=== PATIENT | male | born 1970 | race African-American/Black ===

== ENCOUNTER 2016-08-11 06:42 | Emergency (ER) | payer MEDICAID, OTHER ==
[~2016-08-11] VITALS: Ht 175.3 cm; Wt 86.2 kg
--- OUTSIDE RECORDS SUMMARY | 2016-08-11 06:48 | XMS REPORT | Continuity of Care Document ---
Author Author [facility] Organization [facility] Address Unknown Phone Unavailable Care Team Providers Care Game Attendant Name Role Phone Unverified, Unverified PCP Unavailable Source Comments Some departments are not documenting in the electronic medical record. If you do not see the information that you expected, contact Release of Information in the Health Information Management department at [phone] for further assistance in locating additional records.[facility] Active Allergies and Adverse Reactions No Known Allergies Current Medications Prescription Sig. Disp. Refills Start End Date Status Date enoxaparin (LOVENOX) 40 Inject 0.4 mL under the 14 Syringe 1 07/27/20 08/29/19 Active mg injection syringe skin daily for 33 days. 16 17 senna/docusate (SENNA Take 1 Tab by mouth twice 120 Tab 1 07/27/20 Active WITH DOCUSATE SODIUM) daily. Hold for loose 16 8.6/50 mg tablet stools. oxyCODONE (ROXICODONE, Take 1-2 Tabs by mouth 75 Tab 0 07/27/20 Active OXY-IR) 5 mg tablet every 4 hours as needed 16 for Pain Earliest Fill Date: 07/27/16 polyethylene glycol 3350 Take 1 Packet by mouth 12 Each 2 07/27/20 Active (MIRALAX) 17 g packet twice daily. 16 senna/docusate Take 2 Tabs by mouth 120 Tab 0 07/27/20 Active (SENOKOT-S) 8.6/50 mg twice daily. 16 tablet docusate (COLACE) 100 mg Take 1 Cap by mouth twice 60 Cap 0 08/07/20 Active capsule daily as needed for 16 Constipation. aspirin EC 325 mg tablet Take 1 Tab by mouth daily 42 Tab 0 08/07/20 09/18/19 Active for 42 days. Take 1 tab 16 17 daily for 6 weeks after surgery. HYDROcodone/acetaminophen Take 1-2 Tabs by mouth 60 Tab 0 08/07/20 Active (NORCO) 5/325 mg tablet every 4-6 hours as needed 16 for Pain Indications: PAIN Do not take prior to surgery. ondansetron hcl (ZOFRAN) Take 1 Tab by mouth every 10 Tab 0 08/07/20 Active 8 mg tablet 8 hours as needed for 16 Nausea or Vomiting. Active Problems Problem Noted Date Dislocation of left knee 07/30/2016 Knee dislocation 07/22/2016 Most Recent Encounters Date Type Specialty Providers Description 08/12/2016 [facility] Wu Mayfield MD Knee dislocation Encounter 08/07/2016 Office Visit Sports Medicine Wu Mayfield MD Dislocation of knee, left, subsequent encounter (Primary Dx); Dislocation of knee, right, subsequent encounter 08/07/2016 Prep for Case Sports Medicine Wu Mayfield MD Knee dislocation, left, subsequent encounter (Primary Dx); Knee dislocation, right, subsequent encounter 07/30/2016 Office Visit Orthopedic Surgery Ivan Ayoub MD Knee dislocation, right, subsequent encounter (Primary Dx); Dislocation of left knee, subsequent encounter 07/28/2016 Ancillary Radiology Outpatient, Radiologist Unknown cause of injury, Orders initial encounter (Primary Dx) 07/28/2016 Documentation Live Cohen 07/22/2016 [facility] Family Medicine Ivan Ayoub MD Knee dislocation - Encounter 07/27/2016 07/22/2016 [facility] Radiology Ivan Ayoub MD Encounter 07/22/2016 Hospital Radiology Encounter 07/22/2016 Anesthesia Shereen Roca, FAMILY MANAGER Event 07/22/2016 Surgery Ivan Ayoub MD EXTERNAL FIXATION APPLICATION LOWER EXTREMITY Social History Tobacco Use Types Packs/Day Years Used Date Never Smoker Smokeless Tobacco: Never Used Tobacco Cessation: Counseling Given: No Comments: Alcohol Use Drinks/Week oz/Week Comments No 0 Standard 0.0 drinks or equivalent Last Filed Vital Signs Vital Sign Reading Time Taken Blood Pressure 123/63 08/07/2016 10:35 AM [facility] Pulse 80 08/07/2016 10:35 AM [facility] Temperature 36.7 C (98 F) 07/27/2016 6:05 AM [facility]ER Respiratory Rate 16 08/07/2016 10:35 AM [facility] Height 1.753 m (5' 9") 08/07/2016 10:35 AM [facility] Weight 89.359 kg (197 lb) 08/07/2016 10:35 AM [facility] Body Mass Index 29.08 08/07/2016 10:35 AM [facility]ER Oxygen Saturation 100% 08/07/2016 10:35 AM [facility] Plan of Care Date Type Specialty Providers Description 08/12/2016 Surgery Wu Mayfield MD EXTERNAL FIXATION REMOVAL [address] BILATERAL LOWER EXTREM[address] [place] [address] [phone] (Fax) 08/19/2016 Appointment Radiology Wu Mayfield MD [address] [place] [address] [phone] (Fax) 08/25/2016 Appointment Sports Medicine Wu Mayfield MD [address] [place] [address] [phone] (Fax) Health Maintenance Due Date Last Done Comments Physical (Comprehensive) 1979 Exam Pertussis Vaccine 1983 Tetanus Vaccine 1989 Influenza Vaccine 04/09/2016 Procedures from Last 3 Months Procedure Name Priority Date/Time Associated Diagnosis Comments TELEMETRY STRIPS-SCAN 07/28/2016 Results for this 12:47 PM [facility] procedure are in the results section. EXTERNAL FIXATION 07/22/2016 Trauma APPLICATION LOWER 12:25 PM [facility] EXTREMITY Results from Last 3 Months TELEMETRY STRIPS-SCAN (07/28/2016 12:47 PM) Narrative Ordered by an unspecified provider. CBC (07/27/2016 4:26 AM)Only the most recent of 4 results within the time period is included. Component Value Range White Blood Cells 7.3 4.5-11.0 K/UL RBC 4.60 4.4-5.5 M/UL Hemoglobin 14.0 13.5-16.5 GM/DL Hematocrit 41.8 40-50 % MCV 90.9 80-100 FL MCH 30.5 26-34 PG MCHC 33.5 32.0-36.0 G/DL RDW 13.2 11-15 % Platelet Count 256 150-400 K/UL MPV 8.0 7-11 FL Specimen Blood BASIC METABOLIC PANEL (07/27/2016 4:26 AM)Only the most recent of 4 results within the time period is included. Component Value Range Sodium 133 (L) 137-147 MMOL/L Potassium 4.5 3.5-5.1 MMOL/L Chloride 97 (L) 98-110 MMOL/L CO2 30 21-30 MMOL/L Anion Gap 6 3-12 Glucose 102 (H) 70-100 MG/DL Blood Urea Nitrogen 22 7-25 MG/DL Creatinine 1.04 0.4-1.24 MG/DL Calcium 9.4 8.5-10.6 MG/DL eGFR Non >60Comment: >60 mL/min The eGFR is not validated for use in drug dosing adjustments. Continue to use estimated creatinine clearance per dosing reference text. Please contact the Clinical Pharmacist for questions. eGFR >60Comment: >60 mL/min The eGFR is not validated for use in drug dosing adjustments. Continue to use estimated creatinine clearance per dosing reference text. Please contact the Clinical Pharmacist for questions. Specimen Blood POC GLUCOSE (07/24/2016 3:56 AM) Component Value Range Glucose, POC 103 (H) 70-100 MG/DL PHENCYCLIDINES-URINE RANDOM (07/22/2016 7:50 PM) Component Value Range Phencyclidine (PCP) NEGComment: NEG-NEG RESULTS WERE OBTAINED BY IMMUNOASSAY AND ARE PRESUMPTIVE ONLY. POSITIVE INDICATES THE PRESENCE OF SUBSTANCE WITH CHARACTERISTICS SIMILAR TO DRUG-DRUG CLASS OR METABOLITE IN CONC. EQUAL TO OR EXCEEDING VALUES LISTED. PHENCYCLIDINE (PCP) 25 NG/ML Specimen Urine OPIATES-URINE RANDOM (07/22/2016 7:50 PM) Component Value Range Opiates-Urine POS (A)Comment: NEG-NEG RESULTS WERE OBTAINED BY IMMUNOASSAY AND ARE PRESUMPTIVE ONLY. POSITIVE INDICATES THE PRESENCE OF SUBSTANCE WITH CHARACTERISTICS SIMILAR TO DRUG-DRUG CLASS OR METABOLITE IN CONC. EQUAL TO OR EXCEEDING VALUES LISTED. OPIATES 200 0 NG/ML Specimen Urine COCAINE-URINE RANDOM (07/22/2016 7:50 PM) Component Value Range Cocaine-Urine NEGComment: NEG-NEG RESULTS WERE OBTAINED BY IMMUNOASSAY AND ARE PRESUMPTIVE ONLY. POSITIVE INDICATES THE PRESENCE OF SUBSTANCE WITH CHARACTERISTICS SIMILAR TO DRUG-DRUG CLASS OR METABOLITE IN CONC. EQUAL TO OR EXCEEDING VALUES LISTED. COCAINE 300 NG/ML Specimen Urine CANNABINOIDS-URINE RANDOM (07/22/2016 7:50 PM) Component Value Range THC POS (A)Comment: NEG-NEG RESULTS WERE OBTAINED BY IMMUNOASSAY AND ARE PRESUMPTIVE ONLY. POSITIVE INDICATES THE PRESENCE OF SUBSTANCE WITH CHARACTERISTICS SIMILAR TO DRUG-DRUG CLASS OR METABOLITE IN CONC. EQUAL TO OR EXCEEDING VALUES LISTED. CANNABINOIDS 50 NG/ML Specimen Urine BENZODIAZEPINES-URINE RANDOM (07/22/2016 7:50 PM) Component Value Range Benzodiazepines POS (A)Comment: NEG-NEG RESULTS WERE OBTAINED BY IMMUNOASSAY AND ARE PRESUMPTIVE ONLY. POSITIVE INDICATES THE PRESENCE OF SUBSTANCE WITH CHARACTERISTICS SIMILAR TO DRUG-DRUG CLASS OR METABOLITE IN CONC. EQUAL TO OR EXCEEDING VALUES LISTED. BENZODIAZEPINES 200 NG/ML Specimen Urine BARBITURATES-URINE RANDOM (07/22/2016 7:50 PM) Component Value Range Barbiturates,Urine NEGComment: NEG-NEG RESULTS WERE OBTAINED BY IMMUNOASSAY AND ARE PRESUMPTIVE ONLY. POSITIVE INDICATES THE PRESENCE OF SUBSTANCE WITH CHARACTERISTICS SIMILAR TO DRUG-DRUG CLASS OR METABOLITE IN CONC. EQUAL TO OR EXCEEDING VALUES LISTED. BARBITURATES 200 NG/ML Specimen Urine AMPHETAMINES-URINE RANDOM (07/22/2016 7:50 PM) Component Value Range Amphetamines NEGComment: NEG-NEG RESULTS WERE OBTAINED BY IMMUNOASSAY AND ARE PRESUMPTIVE ONLY. POSITIVE INDICATES THE PRESENCE OF SUBSTANCE WITH CHARACTERISTICS SIMILAR TO DRUG-DRUG CLASS OR METABOLITE IN CONC. EQUAL TO OR EXCEEDING VALUES LISTED. AMPHETAMINES 1000 NG/ML Specimen Urine FLUORO MOBILE IN OR (07/22/2016 3:07 PM) Narrative This order has been auto finalized and does not contain a result. GENERAL RAD LOWER EXT EXTERNAL IMAGING (07/22/2016) Narrative This order has been auto finalized and does not contain a result.
[2016-08-11] MEDS ORDERED: NS IV 1000 ML 1,000 ML IV ONE (06:50)
[2016-08-11] MEDS ORDERED: LOVENOX (07:04)
[2016-08-11] MEDS ORDERED: HYDR-3812 (07:04)
[2016-08-11] MEDS ORDERED: ACET-93 PO (07:05)
[2016-08-11 07:10] LABS: BASOPHILS % (AUTO) 0 % (0-10); EOSINOPHILS % (AUTO) 0 % (0-10); LYMPHOCYTES # (AUTO) 1.3 X 10^3 (1.0-4.0); LYMPHOCYTES % (AUTO) 15 % (12-44); MEAN CORPUSCULAR HEMOGLOBIN 31 PG (25-34); MEAN CORPUSCULAR HGB CONC 35 G/DL (32-36); MEAN CORPUSCULAR VOLUME 90 FL (80-99); MEAN PLATELET VOLUME 9.5 FL (7.4-10.4); MONOCYTES # (AUTO) 1.4 X 10^3 (0.0-1.0); MONOCYTES % (AUTO) 16 % (0-12); NEUTROPHILS # (AUTO) 5.9 X 10^3 (1.8-7.8); NEUTROPHILS % (AUTO) 69 % (42-75); PLATELET COUNT 529 10^3/uL (130-400); RED BLOOD COUNT 4.31 10^6/uL (4.35-5.85); RED CELL DISTRIBUTION WIDTH 13.3 % (10.0-14.5); WHITE BLOOD COUNT 8.5 10^3/uL (4.3-11.0)
[2016-08-11 07:22] LABS: ALANINE AMINOTRANSFERASE 114 U/L (0-55); ALBUMIN 4.2 G/DL (3.2-4.5); ANION GAP 15 MMOL/L (5-14); ASPARTATE AMINO TRANSFERASE 37 U/L (5-34); BILIRUBIN,TOTAL 0.6 MG/DL (0.1-1.0); BLOOD UREA NITROGEN 11 MG/DL (7-18); BUN/CREATININE RATIO 11; CALCIUM 9.5 MG/DL (8.5-10.1); CARBON DIOXIDE 22 MMOL/L (21-32); CHLORIDE 102 MMOL/L (98-107); CREATININE SERUM 0.98 MG/DL (0.60-1.30); GFR ESTIMATED > 60; GLUCOSE 87 MG/DL (70-105); POTASSIUM 4.2 MMOL/L (3.6-5.0); SODIUM 139 MMOL/L (135-145); TOTAL PROTEIN 7.7 G/DL (6.4-8.2); hs C REACTIVE PROTEIN 1.96 MG/DL (0.00-0.50)
--- NOTE | 2016-08-11 07:27 | ED General ---
General Chief Complaint: Fever-Adult/Adol Stated Complaint: FEVER,WEAKNESS Nursing Triage Note: PT REPORTS DEVELOPING FEVER LAST NIGHT, DENIES COUGH/COLD SX. HAS A CHILD WITH FLU IN THE HOME Nursing Sepsis Screen: Possible Sepsis Risk Source of Information: Patient Exam Limitations: No Limitations History of Present Illness Time Seen by Provider: 06:45 Initial Comments Here with report of fever and head congestion since yesterday. Has sick contacts at home. He has children with the cold or flu as he would state. Denies sore throat, runny nose, cough or nausea, vomiting or diarrhea. Had bilateral knee dislocation from traumatic event a few weeks ago with closed reduction and external fixation at [facility]. Had five-day hospital stay from that. He is not currently on antibiotics. Fixation devices supposed to be removed this week. No significant redness or swelling around the fixator on either leg. He has taken Tylenol or hydrocodone for the fever. Currently afebrile. Timing/Duration: 24 Hours Severity: Mild Modifying Factors: improves with Medication Associated Systoms: No Chest Pain, No Cough, Fever/ChillsNo Headaches, No Nausea/Vomiting, No Shortness of Air, No Weakness Allergies and Home Medications Allergies Coded Allergies: No Known Drug Allergies (Unverified , 07/22/16) Home Medications (Reported) Acetaminophen 500 Mg Tablet 1,000 MG PO Q4H (Reported) Enoxaparin Sodium 80 Mg/0.8 Ml Syringe #14 80 MG SQ BID Prescribed by: MARC LOPEZ on 08/11/16 1001 Hydrocodone/Acetaminophen 1 Each Tablet #60 (Reported) Constitutional: see HPI chills fever EENTM: nose congestion see HPINo ear pain, No throat pain Respiratory: no symptoms reportedNo cough, No short of breath Cardiovascular: no symptoms reportedNo chest pain, No palpitations Gastrointestinal: no symptoms reportedNo abdominal pain, No diarrhea, No nausea, No vomiting Genitourinary: no symptoms reported Musculoskeletal: see HPINo muscle pain Skin: no symptoms reported see HPI Psychiatric/Neurological: No Symptoms Reported All Other Systems Reviewed Negative Unless Noted: Yes Past Lqzcgys-Femdtr-Etfwne Hx Patient Social History Alcohol Use: Denies Use Recreational Drug Use: Yes (THC) Smoking Status: Never a Smoker Recent Foreign Travel: No Contact w/Someone Who Travel: No Recent Infectious Disease Expo: No Recent Hopitalizations: No Physical Abuse Screen: No Sexual Abuse: No Seasonal Allergies Seasonal Allergies: No Surgeries HX Surgeries: Yes (CLOSED REDUCTION WITH EXTERNAL FIXATION BILAT LEGS) Surgeries: Orthopedic Respiratory Hx Respiratory Disorders: No Cardiovascular Hx Cardiac Disorders: No Neurological Hx Neurological Disorders: No Reproductive System Hx Reproductive Disorders: No Genitourinary Hx Genitourinary Disorders: No Gastrointestinal Hx Gastrointestinal Disorders: No Musculoskeletal Hx Musculoskeletal Disorders: No Endocrine Hx Endocrine Disorders: No HEENT HX ENT Disorders: No Cancer Hx Cancer: No Psychosocial Hx Psychiatric Problems: No Integumentary HX Skin/Integumentary Disorder: No Blood Transfusions Hx Blood Disorders: No Reviewed Nursing Assessment Reviewed/Agree w Nursing PMH: Yes Family Medical History Significant Family History: No Pertinent Family Hx Physical Exam Vital Signs Vital Sign - Last 12Hours 08/11/16 06:42 Temp 98.2 Pulse 93 Resp 18 B/P 121/71 Pulse Ox 98 O2 Delivery Room Air Capillary Refill : Less Than 3 Seconds General Appearance: No Apparent Distress WD/WN HEENT: PERRL/EOMI TMs Normal Pharynx Normal Other (bilateral nasal congestion with erythema and clear rhinorrhea.) Neck: Full Range of Motion Normal Inspection Non Tender Supple Respiratory: Lungs Clear Normal Breath Sounds Cardiovascular: Regular Rate, Rhythm No Murmur Gastrointestinal: Non Tender Soft Back: Normal Inspection No CVA Tenderness No Vertebral Tenderness Extremity: Non Tender No Calf Tenderness Neurologic/Psychiatric: Alert Oriented x3 Skin: Normal Color Warm/Dry Progress/Results/Core Measures Results/Orders Lab Results Laboratory Tests Test 08/11/16 06:53 Range/Units Alanine Aminotransferase (ALT/SGPT) 114 H 0-55 U/L Albumin 4.2 3.2-4.5 G/DL Alkaline Phosphatase 108 40-136 U/L Anion Gap 15 H 5-14 MMOL/L Aspartate Amino Transf (AST/SGOT) 37 H 5-34 U/L BUN/Creatinine Ratio 11 Basophils # (Auto) 0.0 0.0-0.1 10^3/uL Basophils (%) (Auto) 0 0-10 % Blood Urea Nitrogen 11 7-18 MG/DL C-Reactive Protein High Sensitivity 1.96 H 0.00-0.50 MG/DL Calcium Level 9.5 8.5-10.1 MG/DL Carbon Dioxide Level 22 21-32 MMOL/L Chloride Level 102 98-107 MMOL/L Creatinine 0.98 0.60-1.30 MG/DL Eosinophils # (Auto) 0.0 0.0-0.3 10^3/uL Eosinophils (%) (Auto) 0 0-10 % Estimat Glomerular Filtration Rate > 60 Glucose Level 87 70-105 MG/DL Hematocrit 39 L 40-54 % Hemoglobin 13.4 13.3-17.7 G/DL Lactic Acid Level 1.5 0.5-2.0 MMOL/L Lymphocytes # (Auto) 1.3 1.0-4.0 X 10^3 Lymphocytes (%) (Auto) 15 12-44 % Mean Corpuscular Hemoglobin 31 25-34 PG Mean Corpuscular Hemoglobin Concent 35 32-36 G/DL Mean Corpuscular Volume 90 80-99 FL Mean Platelet Volume 9.5 7.4-10.4 FL Monocytes # (Auto) 1.4 H 0.0-1.0 X 10^3 Monocytes (%) (Auto) 16 H 0-12 % Neutrophils # (Auto) 5.9 1.8-7.8 X 10^3 Neutrophils (%) (Auto) 69 42-75 % Platelet Count 529 H 130-400 10^3/uL Potassium Level 4.2 3.6-5.0 MMOL/L Red Blood Count 4.31 L 4.35-5.85 10^6/uL Red Cell Distribution Width 13.3 10.0-14.5 % Sodium Level 139 135-145 MMOL/L Total Bilirubin 0.6 0.1-1.0 MG/DL Total Protein 7.7 6.4-8.2 G/DL White Blood Count 8.5 4.3-11.0 10^3/uL Micro Results Microbiology 08/11/16 Influenza Types A,B Antigen (BARI) - Final, Complete My Orders Orders-MARC LOPEZ MD Cbc With Automated Diff (08/11/16 06:50) Comprehensive Metabolic Panel (08/11/16 06:50) Hs C Reactive Protein (08/11/16 06:50) Lactic Acid Analyzer (08/11/16 06:50) Blood Culture (08/11/16 06:50) Influenza A And B Antigens (08/11/16 06:50) Saline Lock/Iv-Start (08/11/16 06:50) Ns Iv 1000 Ml (Sodium Chloride 0.9%) (08/11/16 06:50) Chest 1 View, Ap/Pa Only (08/11/16 06:50) Fentanyl Injection (Sublimaze Injection (08/11/16 07:33) Ketorolac Injection (Toradol Injection) (08/11/16 07:33) Us Venous Lower Ext Monico (08/11/16 07:56) Enoxaparin Injection (Lovenox Injection) (08/11/16 09:45) Medications Given in ED Current Medications Medications Dose Ordered Sig/Rafa Route Start Time Stop Time Status Last Admin Dose Admin Enoxaparin Sodium 90 mg ONCE ONCE SC 08/11/16 09:45 08/11/16 09:46 DC 08/11/16 09:46 90 MG Sodium Chloride 1,000 ml @ 0 mls/hr Q0M ONCE IV 08/11/16 06:50 08/11/16 06:53 DC 08/11/16 07:26 1,000 MLS/HR Vital Signs/I&O Vital Sign - Last 12Hours 08/11/16 06:42 Temp 98.2 Pulse 93 Resp 18 B/P 121/71 Pulse Ox 98 O2 Delivery Room Air Blood Pressure Mean: 88 Progress Note : Progress Note Seen and evaluated. IV, labs, chest x-ray and normal saline 1 L bolus. Monitor patient. Patient did receive fentanyl 75 g IV and Toradol 30 mg IV for pain. Patient admits that his last dose Lovenox was last and he was supposed to start aspirin on Wednesday. He did not start that. He then took a dose of Lovenox last night because he did not feel well so was off anticoagulants for 4 days. Bilateral lower extremity ultrasound venous ordered to rule out blood clots in the lower extremities due to being off anticoagulants. 0900: I did page [facility] regarding finding of DVT of the left leg. Pending call back. 0910: Discussed the case with Dr. Pandey, orthopedist iron assorter. He is recommending discussion with medicine in transfer to . I did talk with the triage nurse who ultimately talked with Dr. Ngo, internal medicine on-call. Due to the patient's otherwise rather benign medical history and otherwise good health, they believe that he would do okay with outpatient therapy for DVT. Patient has used Lovenox and is familiar with how to give injections. We will increase dosing to 1 mg/kg twice a day. He will follow-up with his orthopedist tomorrow. Patient and family were okay with that. Otherwise no other significant findings. Lovenox 90 mg subcutaneous ordered. This was done and nursing did do repeat teaching with patient and family member. Discharged home with return precautions. Patient verbalize understanding instructions and agreement with plan. 1003: I did discuss the case with Dr. Mayfield who called from [facility]. He is the patient's primary orthopedic surgeon. He is requesting cancellation of the surgery tomorrow and would like the patient to get IVC filter. His office will set up IVC filter placement at [facility] and will call the patient. All of this was discussed with the patient. Patient will need primary care here in this region. This was discussed with the patient as well. Focal medical staff listing was given and patient will seek local medical staff primary care. Patient will call Dr. Mayfield's office for further instructions. Diagnostic Imaging Diagonstic Imaging: Xray Plain Films/CT/US/NM/MRI: chest Comments NAME: YESENIA GALVEZ [facility] REC#: [id number] PT STATUS: REG ER : 1970 PHYSICIAN: MARC LOPEZ MD ADMIT DATE: 08/11/16/ER Signed Date of Exam: 08/11/16 CHEST 1 VIEW, AP/PA ONLY Portable upright radiograph of the chest. INDICATION: Fever and weakness. FINDINGS: The lungs are clear. The heart size is normal. No effusion or pneumothorax. Mediastinum and mickey appear unremarkable. IMPRESSION: Unremarkable exam. Dictated by: Dictated on workstation # [id number] Dict: 08/11/16 0759 Trans: 08/11/16 0804 MARYSOL [id number] Interpreted by: TOMMY MILAN MD Electronically signed by:TOMMY MILAN MD 08/11/16 0807 Reviewed: Reviewed by Me Diagonstic Imaging: Ultrasound Plain Films/CT/US/NM/MRI: leg Comments VIA [facility]. [place], [place] NAME: YESENIA GALVEZ [facility] REC#: [id number] PT STATUS: REG ER : 1970 PHYSICIAN: MARC LOPEZ MD ADMIT DATE: 08/11/16/ER Draft Date of Exam:08/11/16 US VENOUS LOWER EXT MONICO EXAMINATION: Bilateral lower extremity duplex venous ultrasound. TECHNIQUE: DVT protocol. Multiple sonographic images with color Doppler and waveform interrogation were performed of the lower extremity veins, bilaterally, with compression and augmentation maneuvers. INDICATION: Bilateral leg fractures. FINDINGS: The lower extremity veins from the common femoral veins to the popliteal veins were examined with normal color-flow, compressibility and normal waveform demonstrated. There is, however, a short-segment DVT occluding the left peroneal vein in the mid calf. The visualized infrapopliteal veins of the right side are patent. The great saphenous vein bilaterally is patent. There is a 3.6 x 0.6 x 2.5-cm Agosto cyst on the left, and there is a 4.4 x 1.9 x 3.9-cm Agosto cyst on the right side. IMPRESSION: Occlusive short-segment DVT in the left peroneal vein in the mid calf. No extension of the DVT more proximally into the femoropopliteal segments. No evidence of DVT in the right lower extremity. The findings were called to Dr. Lopez by Dr. Milan at time of dictation. Dictated on workstation # [id number] Dict: 08/11/16 0854 Trans: 08/11/16 0917 MARYSOL [id number] Interpreted by: TOMMY MILAN MD Electronically signed by: Departure Impression Impression: Primary Impression: Deep vein thrombosis (DVT) of left lower extremity Qualified Code: I82.492 - Acute embolism and thrombosis of other specified deep vein of left lower extremity Disposition: 01 HOME, SELF-CARE Condition: Improved Departure-Patient Inst. Decision time for Depature: 09:58 Referrals: NO,LOCAL PHYSICIAN (PCP/Family) Primary Care Physician Patient Instructions: Deep Vein Thrombosis (Blood Clots in the Legs) (DC) Add. Discharge Instructions: All discharge instructions reviewed with patient and/or family. Voiced understanding. You will use Lovenox injection twice daily as discussed and prescribed. Keep follow-up appointment with orthopedic surgeon at tomorrow. Discussed with the surgeon about further anticoagulation as you will need continuation of your dosing or alternate med as indicated. You will have one week dosing of your Lovenox. Return for worse pain, fever, vomiting, breathing problems or other concerns as needed. You may take Tylenol or hydrocodone/acetaminophen but not both. Drink plenty of fluids. Scripts Enoxaparin Sodium (Lovenox)80 Mg/0.8 Ml [id number] Mg SQ BID #14 SYRINGE Ref 0 Prov:MARC LOPEZ MD 08/11/16 Work/School Note: Local Medical Staff Listing MARC LOPEZ MD Aug 11, 2016 07:27
[2016-08-11] MEDS ORDERED: fentaNYL INJECTION 100 MCG/2 ML AMP IVP STA (07:33)
[2016-08-11] MEDS ORDERED: KETOROLAC 30 MG/ML VIAL IVP STA (07:33)
--- NOTE | 2016-08-11 08:02 | Diagnostic Imaging Report ---
Portable upright radiograph of the chest. INDICATION: Fever and weakness. FINDINGS: The lungs are clear. The heart size is normal. No effusion or pneumothorax. Mediastinum and mickey appear unremarkable. IMPRESSION: Unremarkable exam. Dictated by: Dictated on workstation # [id number]
--- NOTE | 2016-08-11 09:18 | Diagnostic Imaging Report ---
EXAMINATION: Bilateral lower extremity duplex venous ultrasound. TECHNIQUE: DVT protocol. Multiple sonographic images with color Doppler and waveform interrogation were performed of the lower extremity veins, bilaterally, with compression and augmentation maneuvers. INDICATION: Bilateral leg fractures. FINDINGS: The lower extremity veins from the common femoral veins to the popliteal veins were examined with normal color-flow, compressibility and normal waveform demonstrated. There is, however, a short-segment DVT occluding the left peroneal vein in the mid calf. The visualized infrapopliteal veins of the right side are patent. The great saphenous vein bilaterally is patent. There is a 3.6 x 0.6 x 2.5-cm Agosto cyst on the left, and there is a 4.4 x 1.9 x 3.9-cm Agosto cyst on the right side. IMPRESSION: Occlusive short-segment DVT in the left peroneal vein in the mid calf. No extension of the DVT more proximally into the femoropopliteal segments. No evidence of DVT in the right lower extremity. The findings were called to Dr. Andres by Dr. Milan at time of dictation. Dictated by: Dictated on workstation # [id number]
[2016-08-11] MEDS ORDERED: ENOXAPARIN 100 MG/1 ML (LOVENOX) SYR SC ONE (09:45)
[2016-08-11] MEDS ORDERED: ENOX80DI12 SQ (10:01)
[2016-08-11 10:44] VITALS: BP 116/57
[2016-08-12] MEDS ORDERED: APIX5TAB PO (12:35)
== END 2016-08-11 10:44 | disposition home or self-care (01) ==
LOC: EDUNIT# 06:42 → ER 06:44
DX: I82.4Z2 Acute embolism and thrombosis of unspecified deep veins of left distal lower extremity (principal); S83.19 Other subluxation and dislocation of knee; Z97.8 Presence of other specified devices; Z98.890 Other specified postprocedural states
CPT/HCPCS: 36415; 71010; 80053; 83605; 85025; 86141; 87040; 87804; 93970; 96361; 96372; 96374; 96375

== ENCOUNTER 2016-08-12 11:25 | Emergency (ER) | payer MEDICAID, OTHER ==
[~2016-08-12] VITALS: Ht 175.3 cm; Wt 86.2 kg
[~2016-08-12 11:25] MED LIST: ACET-93 PO; ENOX80DI12 SQ; HYDR-3812; LOVENOX
[2016-08-12] MEDS ORDERED: ENOXAPARIN 100 MG/1 ML (LOVENOX) SYR SC ONE (11:30)
--- OUTSIDE RECORDS SUMMARY | 2016-08-12 11:31 | XMS REPORT | Continuity of Care Document ---
Author Author [facility] Organization [facility] Address Unknown Phone Unavailable Care Team Providers Care Human Resources Executive Assistant Name Role Phone Unverified, Unverified PCP Unavailable Source Comments Some departments are not documenting in the electronic medical record. If you do not see the information that you expected, contact Release of Information in the Health Information Management department at [phone] for further assistance in locating additional records.[facility] Active Allergies and Adverse Reactions No Known [...] Recent Encounters Date Type Specialty Providers Description 08/19/2016 [facility] Wu Mayfield MD Knee dislocation Encounter 08/11/2016 Telephone Sports Medicine Wu Mayfield MD 08/07/2016 Office Visit Sports Medicine Wu Mayfield MD Dislocation of knee, left, subsequent encounter (Primary Dx); Dislocation of knee, right, subsequent encounter 08/07/2016 Prep for Case Sports Wu Wahl MD Knee dislocation, left, subsequent encounter (Primary Dx); Knee dislocation, right, subsequent encounter 07/30/2016 Office Visit Orthopedic Surgery Ivan Ayoub MD Knee dislocation, right, subsequent encounter (Primary Dx); Dislocation of left knee, subsequent encounter 07/28/2016 Ancillary Radiology Outpatient, Radiologist Unknown cause of injury, Orders initial encounter (Primary Dx) 07/28/2016 Documentation Live Cohen 07/22/2016 [facility] Family Medicine Ivan Ayoub MD Knee dislocation - Encounter 07/27/2016 07/22/2016 Hospital Radiology Ivan Ayoub MD Encounter 07/22/2016 Hospital Radiology Encounter 07/22/2016 Anesthesia Shereen Roca, MACHINE ACCOUNTANT Event 07/22/2016 Surgery Ivan Ayoub MD EXTERNAL FIXATION APPLICATION LOWER EXTREMITY Social History Tobacco Use Types Packs/Day Years Used Date Never Smoker Smokeless Tobacco: Never Used Tobacco Cessation: Counseling Given: No Comments: Alcohol Use Drinks/Week oz/Week Comments No 0 Standard 0.0 drinks or equivalent Last Filed Vital Signs Vital Sign Reading Time Taken Blood Pressure 123/63 08/07/2016 10:35 AM LENS EDGER Pulse 80 08/07/2016 10:35 AM LENS EDGER Temperature 36.7 C (98 F) 07/27/2016 6:05 AM LENS EDGER Respiratory Rate 16 08/07/2016 10:35 AM LENS EDGER Height 1.753 m (5' 9.02") 08/11/2016 9:53 AM LENS EDGER Weight 89.359 kg (197 lb) 08/11/2016 9:53 AM LENS EDGER Body Mass Index 29.08 08/11/2016 9:53 AM LENS EDGER Oxygen Saturation 100% 08/07/2016 10:35 AM LENS EDGER Plan of Care Date Type Specialty Providers Description 08/18/2016 Appointment Radiology Wu Mayfield MD [address] [place] [address] [phone] (Fax) 08/19/2016 Surgery Wu Mayfield MD EXTERNAL FIXATION REMOVAL [address] BILATERAL LOWER EXTREM[address] [place] [address] [phone] (Fax) 08/19/2016 Appointment Radiology Wu Mayfield MD [address] [place] [address] [phone] (Fax) 08/25/2016 Appointment Sports Medicine Wu Mayfield MD [address] [place] [address] [phone] (Fax) Health Maintenance Due Date Last Done Comments Physical (Comprehensive) 1979 Exam Pertussis Vaccine 1983 Tetanus Vaccine 1989 Influenza Vaccine 04/09/2016 Procedures from Last 3 Months Procedure Name Priority Date/Time Associated Diagnosis Comments TELEMETRY STRIPS-SCAN 07/28/2016 Results for this 12:47 PM LENS EDGER procedure are in the results section. EXTERNAL FIXATION 07/22/2016 Trauma APPLICATION LOWER 12:25 PM LENS EDGER EXTREMITY Results from Last 3 Months TELEMETRY [...]
--- NOTE | 2016-08-12 11:57 | ED General ---
General Chief Complaint: General Problems/Pain Stated Complaint: NEEDS SHOT/MEDS REFILLED Source of Information: Patient Exam Limitations: No Limitations History of Present Illness Time Seen by Provider: 11:40 Initial Comments Here with report of the being his Lovenox shot. He was actually called in by me today because his family called and they were unable to fill his Lovenox. He was seen by me yesterday and noted to have left lower extremity DVT. He does have bilateral knee dislocation with external fixation hardware in place currently. He was supposed to be on Lovenox and/or aspirin but was off anticoagulants for 4 days. Yesterday noted the DVT. Overall he feels much better today. He did receive Lovenox 80 mg subcutaneous yesterday in the ER and took a 40 mg shot last night. He was unable to fill his prescription at pharmacy today as they did not have it and it was going to be over $900. He is feeling much better today. I did talk with his pharmacy and verify that the prescription was not available and the dosing I ordered and also the amount. They do have eliquis as an option. Timing/Duration: 12 Hours Severity: Mild Associated Systoms: No Chest Pain, No Nausea/Vomiting, No Shortness of Air Allergies and Home Medications Allergies Coded Allergies: No Known Drug Allergies (Unverified , 07/22/16) Home Medications (Reported) Acetaminophen 500 Mg Tablet 1,000 MG PO Q4H (Reported) Enoxaparin Sodium 80 Mg/0.8 Ml Syringe #14 80 MG SQ BID Prescribed by: MARC LOPEZ on 08/11/16 1001 Hydrocodone/Acetaminophen 1 Each Tablet #60 (Reported) Constitutional: see HPINo chills, No fever Respiratory: no symptoms reported Cardiovascular: no symptoms reported Musculoskeletal: see HPI Past Lxmwahq-Ovdzir-Iqzgsy Hx Patient Social History Recent Foreign Travel: No Contact w/Someone Who Travel: No Recent Hopitalizations: No Seasonal Allergies Seasonal Allergies: No Surgeries HX Surgeries: Yes (CLOSED REDUCTION WITH EXTERNAL FIXATION BILAT LEGS) Surgeries: Orthopedic Respiratory Hx Respiratory Disorders: No Cardiovascular Hx Cardiac Disorders: No Neurological Hx Neurological Disorders: No Reproductive System Hx Reproductive Disorders: No Genitourinary Hx Genitourinary Disorders: No Gastrointestinal Hx Gastrointestinal Disorders: No Musculoskeletal Hx Musculoskeletal Disorders: No Endocrine Hx Endocrine Disorders: No HEENT HX ENT Disorders: No Cancer Hx Cancer: No Psychosocial Hx Psychiatric Problems: No Integumentary HX Skin/Integumentary Disorder: No Blood Transfusions Hx Blood Disorders: No Family Medical History Significant Family History: No Pertinent Family Hx Physical Exam Vital Signs Vital Sign - Last 12Hours 08/12/16 11:40 Temp 98.7 Pulse 68 Resp 16 B/P 125/75 Pulse Ox 98 O2 Delivery Room Air Capillary Refill : General Appearance: No Apparent Distress WD/WN Respiratory: Lungs Clear Normal Breath Sounds Cardiovascular: Regular Rate, Rhythm No Murmur Neurologic/Psychiatric: Alert Oriented x3 Progress/Results/Core Measures Results/Orders My Orders Orders-MARC LOPEZ MD Enoxaparin Injection (Lovenox Injection) (08/12/16 11:30) Medications Given in ED Current Medications Medications Dose Ordered Sig/Rafa Route Start Time Stop Time Status Last Admin Dose Admin Enoxaparin Sodium 90 mg ONCE ONCE SC 08/12/16 11:30 08/12/16 11:31 DC 08/12/16 11:56 90 MG Vital Signs/I&O Vital Sign - Last 12Hours 08/12/16 11:40 Temp 98.7 Pulse 68 Resp 16 B/P 125/75 Pulse Ox 98 O2 Delivery Room Air Progress Note : Progress Note Seen and evaluated. Lovenox 80 mg subcutaneous. Social work consulted for assistance with medication. Departure Impression Impression: Primary Impression: Deep vein thrombosis (DVT) of left lower extremity Qualified Code: I82.492 - Acute embolism and thrombosis of other specified deep vein of left lower extremity Disposition: 01 HOME, SELF-CARE Condition: Improved Departure-Patient Inst. Decision time for Depature: 11:58 Referrals: NO,LOCAL PHYSICIAN (PCP/Family) Primary Care Physician Patient Instructions: Deep Vein Thrombosis (Blood Clots in the Legs) (DC) Add. Discharge Instructions: All discharge instructions reviewed with patient and/or family. Voiced understanding. Take medications as directed. You will start 2 tabs twice daily for 7 days and then take one tablet twice daily thereafter of the Eliquis. Keep appointment next week at . Let them know what medicine was prescribed and you may have medicine changed after talking with them. It is vitally important that you get local physician. Please find local physician. Return for worsening, fever, vomiting, weakness, breathing problems or other concerns as needed. Scripts Apixaban (Eliquis)5 Mg Tablet5 Mg PO UD #60 TAB Ref 0 Take 2 tabs by mouth twice a day for 7 days and then one tab by mouth twice a day thereafter Prov:MARC LOPEZ MD 08/12/16 MARC LOPEZ MD Aug 12, 2016 11:56
[2016-08-12 12:34] VITALS: BP 125/75
[2016-08-12] MEDS ORDERED: APIX5TAB PO (12:35)
== END 2016-08-12 12:36 | disposition home or self-care (01) ==
LOC: EDUNIT# 11:25 → ER 11:27
DX: I82.4Z2 Acute embolism and thrombosis of unspecified deep veins of left distal lower extremity (principal); S83.094D Other dislocation of right patella, subsequent encounter; S83.095D Other dislocation of left patella, subsequent encounter; Z98.890 Other specified postprocedural states; Z97.8 Presence of other specified devices
CPT/HCPCS: 96372; 99283

== ENCOUNTER → 2019-06-20 | Outpatient (CLI) | payer OTHER ==
[~2019-06-20] MED LIST changes: +ACHD5005; +APIX5TAB PO; -HYDR-3812
--- NOTE | 2019-06-20 13:21 | Diagnostic Imaging Report ---
INDICATION: Disability determination, pain. COMPARISON: July 22, 2016. TECHNIQUE: Four radiographs of the bilateral knees dated June 20, 2019. FINDINGS: Right: No acute fracture or dislocation. Evidence of a prior ACL reconstruction. Heterotopic ossification about the right knee from prior remote trauma. Mild medial and lateral joint space narrowing. No joint effusion. No suspicious radiopaque foreign body. Left: No acute fracture or dislocation. Postsurgical changes are noted involving the left knee with an orthopedic button seen overlying the posterior aspect of the tibial spine. Mild heterotopic ossification. Mild lateral joint space narrowing. Medial compartment is well maintained. No significant joint effusion. IMPRESSION: Postsurgical changes involving the bilateral knees. Orthopedic button is seen overlying the posterior aspect of the left tibial plateau. This could relate to prior repair of a meniscus or PCL. Alternatively, this could relate to a prior ACL reconstruction with the graft pulled through the tunnel and into the joint space. Recommend comparison to prior radiographs for further evaluation. No acute fracture or dislocation with mild degenerative changes. 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 If symptoms persist, MRI of the knee would be recommended given history of bilateral knee dislocations in 2016. Dictated by: Dictated on workstation # [id number]
== END ==
LOC: RAD 10:14
PROVIDERS: ATTEND Surgery
DX: Z02.71 Encounter for disability determination (principal); M61.562 Other ossification of muscle, left lower leg; M61.561 Other ossification of muscle, right lower leg; Z98.890 Other specified postprocedural states